=== PATIENT | female | born 1995 | race Caucasian/White ===

== ENCOUNTER 2017-07-28 18:25 | Emergency (ER) | payer BC ==
[~2017-07-28 18:25] MED LIST: ISOVUE-370 76%-LOCM 1 ML ONE
[2017-07-28 19:00] LABS: Bilirubin Negative (Negative); Blood, Urine Negative (Negative); Glucose, Urine (Dipstick) Negative (Negative); Ketone, Urine Negative (Negative); Nitrite Negative (Negative); Protein, Urine (Dipstick) Negative (Neg-Trace); Urobilinogen 0.2 mg/dL (0.2-1.0)
[2017-07-28 19:43] LABS: #Basophils 0.1 thou/uL (0.0-0.2); #Eosinphils 0.1 thou/uL (0.0-0.7); #Lymphocytes 3.4 thou/uL (1.20-3.40); #Monocytes 0.5 thou/uL (0.11-0.59); #Neutrophils 3.9 thou/uL (1.40-6.50); %Basophils 1.1 % (0.0-1.0); %Eosinophils 1.2 % (0.0-10.0); %Lymphocytes 42.4 % (28.0-48.0); %Monocytes 6.3 % (0.0-4.0); Hematocrit 43.5 % (36.0-47.0); Mean Platelet Volume 8.2 fL (7.4-10.4); Red Blood Cell (RBC) Count 4.63 mill/uL (4.00-5.20)
[2017-07-28 20:07] LABS: ALT (SGPT) 12 U/L (8-55); AST (SGOT) 22 U/L (5-34); Alkaline Phosphatase 55 U/L (40-150); Anion Gap 12 mmol/L (10-20); BUN (Urea Nitrogen) 10 mg/dL (7.0-18.7); Bilirubin, Total 0.4 mg/dL (0.2-1.2); Calc. Creatinine Clearance 0 mL/min (70-130); Calcium 9.4 mg/dL (7.8-10.44); Carbon Dioxide 26 mmol/L (22-29); Chloride 102 mmol/L (98-107); Estimated GFR-MDRD Greater than 90; Globulin 3.1 g/dL (2.4-3.5); Protein, Total 7.2 g/dL (6.0-8.3)
--- NOTE | 2017-07-28 22:20 | CT ---
CONTRAST ENHANCED ABDOMEN AND PELVIC CT: 07/28/17 HISTORY: Left upper quadrant pain. No prior comparison. FINDINGS: No consolidation at the imaged lung bases. There is moderate distention of the gallbladder. No focal hepatic or splenic lesion. No peripancreatic inflammation. No evidence of adrenal mass. Kidneys are unremarkable. Contrast opacified small bowel is normal in caliber. There is moderate retained fecal material throughout the colon. The abdominal aorta is normal in caliber. There is no free air or si gnificant abdominal ascites. There is heterogeneity of the uterus and adnexa which may be physiologi c, given patient's age. Imaged osseous structures are intact. IMPRESSION: 1. Moderate retained fecal material in the colon. 2. No acute process otherwise identified. POS: JOEL
== END 2017-07-28 22:52 | disposition home or self-care (01) ==
LOC: ERS 18:25
DX: R10.10 Upper abdominal pain, unspecified (principal); Z79.899 Other long term (current) drug therapy
CPT/HCPCS: 74177; 80053; 81003; 81025; 85025

== ENCOUNTER 2017-12-09 10:41 | Outpatient (CLI) | payer BC | END 2017-12-09 10:42 | disposition home or self-care (01) | LOC: BICRAD 10:41 | PROVIDERS: ATTEND Internal Medicine Gastroenterology | DX: R14.0 Abdominal distension (gaseous) (principal) | CPT/HCPCS: 74018 ==